=== PATIENT | male | born 1935 | race Caucasian/White ===

== ENCOUNTER → 2016-04-28 | Outpatient (CLI) | payer MEDICARE, BC ==
[~2016-04-28] MED LIST: Albuterol 0.083% 2.5 MG/3 ML Neb Soln NEB ONE
== END | disposition home or self-care (01) ==
LOC: MW.RT 08:59
PROVIDERS: ATTEND Psychiatry & Neurology Neuromuscular Medicine
DX: R13.10 Dysphagia, unspecified (principal)
CPT/HCPCS: 94010

== ENCOUNTER → 2016-07-31 | Outpatient (CLI) | payer MEDICARE, BC ==
[2016-07-31 10:46] LABS: CHLORIDE,CL 103 mmol/L (98-110); SODIUM,NA 136 mmol/L (136-146)
== END ==
LOC: MW.CHNEURO 09:56
PROVIDERS: ATTEND Psychiatry & Neurology Neuromuscular Medicine
DX: G12.21 Amyotrophic lateral sclerosis (principal)
CPT/HCPCS: 36415; 80053; 85025; 95885; 95910; 99214

== ENCOUNTER 2016-10-23 11:59 | Emergency (ER) | payer MEDICARE, BC ==
--- NOTE | 2016-10-23 12:44 | EDM.PDOC ---
ED HPI GENERAL MEDICAL PROBLEM - General Chief Complaint: Respiratory Problem Stated Complaint: TROUBLE BREATHING Time Seen by Provider: 10/23/16 12:30 Source of Information: Reports: Patient History Limitations: Reports: No Limitations - History of Present Illness INITIAL COMMENTS - FREE TEXT/NARRATIVE: HISTORY AND PHYSICAL: History of present illness: [Patient comes to the emergency room complaining of nasal congestion. Has a history of allergic rhinitis and ALS. He has noticed worsening congestion and difficulty breathing through his nose for the past couple of weeks. He is use some Afrin type nasal spray for 6 days without significant improvement in his symptoms. He's been using an [place] pot which provided short-term relief. He continues to use Flonase nasal spray twice daily. Takes Zyrtec from time to time. He denies any chest pain shortness of breath and difficulty breathing. He' s had no cough or chest congestion. No sputum production. He denies sinus pain. Is not blowing purulent drainage from his nostrils. No headaches, earaches, sore throat. Denies fever or chills and states that he has recently been well.] Review of systems: As per history of present illness and below otherwise all systems reviewed and negative. Past medical history: As per history of present illness and as reviewed below otherwise noncontributory. Surgical history: As per history of present illness and as reviewed below otherwise noncontributory. Social history: No reported history of drug or alcohol abuse. Family history: As per history of present illness and as reviewed below otherwise noncontributory. Physical exam: HEENT: Atraumatic, normocephalic. TMs are pearly aragon and equal bilaterally. Nares are significantly boggy and erythematous. No discharge noted. Nontender with palpation over sinuses. mucous membranes moist, throat clear. neck supple , nontender. Lungs: Clear to auscultation, breath sounds equal bilaterally. Heart: S1S2, regular rate and rhythm. Abdomen: Soft, nondistended, nontender. Pelvis: Stable nontender. Genitourinary: Deferred. Rectal: Deferred. Extremities: Atraumatic. Neurovascular unremarkable. Neuro: Awake, alert, oriented. Exam nonfocal. Impression: [Nasal congestion] Plan: [Recommend Sudafed, continue Flonase and Zyrtec daily. Follow-up with ENT. Referrals given for patient to set up appointment. Patient is in agreement with this plan.] Definitive disposition and diagnosis as appropriate pending reevaluation and review of above. - Related Data Allergies Allergy/AdvReac Type Severity Reaction Status Date / Time No Known Allergies Allergy Verified 10/23/16 12:17 Home Meds: Home Meds Tamsulosin HCl [Tamsulosin HCl] 1 tab PO DAILY 03/07/14 [History] Cetirizine [ZyrTEC] 10 mg PO DAILY 10/23/16 [History] ClonazePAM [KlonoPIN] 0.5 mg PO DAILY PRN 10/23/16 [History] Fluticasone Propionate [Flonase] 2 sprays NASBOTH BID 10/23/16 [History] Lisinopril 5 mg PO DAILY 10/23/16 [History] Past Medical History - Past Health History Medical/Surgical History: Denies Medical/Surgical History Neurological History: Reports: Other (See Below) Other Neuro History: ALS - Infectious Disease History Infectious Disease History: Reports: Chicken Pox, Measles, Mumps Social & Family History - Family History Family Medical History: Noncontributory - Tobacco Use Smoking Status *Q: Never Smoker Second Hand Smoke Exposure: No - Caffeine Use Caffeine Use: Reports: None - Alcohol Use Days Per Week of Alcohol Use: 0 Number of Drinks Per Day: 1 Total Drinks Per Week: 0 - Recreational Drug Use Recreational Drug Use: No ED ROS GENERAL - Review of Systems Review Of Systems: ROS reveals no pertinent complaints other than HPI. ED EXAM, GENERAL - Physical Exam Exam: See Below Course - Vital Signs Last Recorded V/S: Last Vital Signs Temp 98.6 F 10/23/16 13:09 Pulse 77 10/23/16 13:09 Resp 18 10/23/16 13:09 BP 130/69 10/23/16 13:09 Pulse Ox 96 10/23/16 13:09 Departure - Departure Time of Disposition: 12:50 Disposition: Home, Self-Care 01 Condition: Good Clinical Impression: Nasal sinus congestion - Discharge Information Instructions: Sinus Rinse, Debr-na-Dxot Referrals: Tristian Guzman MD [Primary Care Provider] - Forms: ED Department Discharge Additional Instructions: The following information is given to patients seen in the emergency department who are being discharged to home. This information is to outline your options for follow-up care. We provide all patients seen in our emergency department with a follow-up referral. The need for follow-up, as well as the timing and circumstances, are variable depending upon the specifics of your emergency department visit. If you don't have a primary care physician on staff, we will provide you with a referral. We always advise you to contact your personal physician following an emergency department visit to inform them of the circumstance of the visit and for follow-up with them and/or the need for any referrals to a consulting specialist. The emergency department will also refer you to a specialist when appropriate. This referral assures that you have the opportunity for follow-up care with a specialist. All of these measure are taken in an effort to provide you with optimal care, which includes your follow-up. Under all circumstances we always encourage you to contact your private physician who remains a resource for coordinating your care. When calling for follow-up care, please make the office aware that this follow-up is from your recent emergency room visit. If for any reason you are refused follow-up, please contact the [facility] emergency department at and asked to speak to the emergency department charge nurse. [facility] Specialty care- ENT [address] [place] [address] Follow-up with your primary care provider or with another provider at the clinic. Recommend follow-up with an research professor at the clinic listed above. Contact the phone number listed above to schedule an appointment. Continue Flonase nasal spray in each nostril. Recommend Zyrtec 10 mg daily. Recommend Sudafed. This medication is available [id number] but you have to ask the pharmacist for it. Follow the instructions on the packaging for dosing instructions. Return to ER as needed as discussed.
[2016-10-23 13:10] VITALS: BP 130/69
== END 2016-10-23 13:09 | disposition home or self-care (01) ==
LOC: MW.ED 11:59
DX: R09.81 Nasal congestion (principal); Z79.899 Other long term (current) drug therapy
CPT/HCPCS: 99282

== ENCOUNTER 2017-03-05 06:36 | Day surgery (SDC) | payer MEDICARE, BC ==
[~2017-03-05 06:36] MED LIST changes: -Albuterol 0.083% 2.5 MG/3 ML Neb Soln NEB ONE; +cefOXitin 1 GM in Premix Bag 1 BAG IV SCH
[2017-03-05] MEDS: Lactated Ringers 1,000 ML IV SCH ×5 (07:04→22:49)
[2017-03-05] MEDS ORDERED: Lidocaine 4% Top Soln 50 ML Bottle ONE (07:24)
[2017-03-05] MEDS ORDERED: Lidocaine 2% 5 ML SDV ONE (07:27)
[2017-03-05] MEDS ORDERED: Propofol 200 MG/20 ML SDV ONE (07:27)
[2017-03-05] MEDS ORDERED: Bupivacaine 0.5% 10 ML SDV ONE (07:27)
[2017-03-05] MEDS ORDERED: Midazolam 1 MG/ML 2 ML SDV ONE (07:27)
[2017-03-05] MEDS ORDERED: Ondansetron 4 MG/2 ML SDV ONE (07:34)
--- NOTE | 2017-03-05 07:42 | PCM.PREANE ---
Preanesthetic Assessment - Anesthesia/Transfusion/Family Hx Anesthesia History: Prior Anesthesia Without Reaction Type of Anesthesia Reaction: Other (see below) (slow to wake up) Family History of Anesthesia Reaction: No Transfusion History: No Prior Transfusion(s) Intubation History: Unknown - Review of Systems General: No Symptoms Pulmonary: No Symptoms Cardiovascular: No Symptoms Gastrointestinal: Nausea Neurological: Weakness (particularly arms) Other: Reports: None - Physical Assessment O2 Sat by Pulse Oximetry: 98 Respiratory Rate: 16 Vital Signs: Last Vital Signs Temp Pulse 91 03/05/17 07:02 Resp 16 03/05/17 07:02 BP 156/90 H 03/05/17 07:02 Pulse Ox 98 03/05/17 07:02 Height: 1.63 m Weight: 60.328 kg ASA Class: 3 Mental Status: Alert & Oriented x3 Airway Class: Mallampati = 2 Thyro-Mental Finger Breadths: 3 Mouth Opening Finger Breadths: 2 (very small mouth) ROM/Head Extension: Limited/Partial Lungs: Clear to Auscultation, Normal Respiratory Effort, Decreased Breath Sounds Cardiovascular: Regular Rate, Regular Rhythm - Allergies Allergies/Adverse Reactions: Allergies Allergy/AdvReac Type Severity Reaction Status Date / Time No Known Allergies Allergy Verified 03/02/17 15:39 - Blood Blood Available: No - Anesthesia Plan Pre-Op Medication Ordered: None - Acknowledgements Anesthesia Type Planned: General Anesthesia Pt an Appropriate Candidate for the Planned Anesthesia: Yes Alternatives and Risks of Anesthesia Discussed w Pt/Guardian: Yes Pt/Guardian Understands and Agrees with Anesthesia Plan: Yes PreAnesthesia Questionnaire - Past Health History Medical/Surgical History: Denies Medical/Surgical History HEENT History: Reports: Allergic Rhinitis, Hard of Hearing Other HEENT History: wears glasses, nasal obstruction- uses flonase twice a day Cardiovascular History: Reports: Hypertension Respiratory History: Reports: COPD, Other (See Below) Other Respiratory History: recurrent aspiration pneumonia, neuromascular respiratory weakness Gastrointestinal History: Reports: GERD, Other (See Below) (dysphagia) Genitourinary History: Reports: BPH Musculoskeletal History: Reports: Fracture, Other (See Below) Other Musculoskeletal History: has ALS, hx of fx arm Neurological History: Reports: Other (See Below) Other Neuro History: ALS diagnosed 01/28, polyradiculoneuropathy Psychiatric History: Reports: Anxiety - Infectious Disease History Infectious Disease History: Reports: Chicken Pox, Measles, Mumps - Past Surgical History Head Surgeries/Procedures: Reports: None HEENT Surgical History: Reports: Tonsillectomy GI Surgical History: Reports: Appendectomy Male Surgical History: Reports: Vasectomy Musculoskeletal Surgical History: Reports: ORIF Other Musculoskeletal Surgeries/Procedures:: hx of ORIF left hip - SUBSTANCE USE Smoking Status *Q: Never Smoker Second Hand Smoke Exposure: No Days Per Week of Alcohol Use: 0 Number of Drinks Per Day: 1 Total Drinks Per Week: 0 Recreational Drug Use History: No - HOME MEDS Home Medications: Home Meds Tamsulosin HCl [Tamsulosin HCl] 0.4 mg PO DAILY 03/07/14 [History] Cetirizine [ZyrTEC] 10 mg PO DAILY 10/23/16 [History] ClonazePAM [KlonoPIN] 0.5 mg PO ASDIRECTED PRN 10/23/16 [History] Fluticasone Propionate [Flonase] 2 sprays NASBOTH BID 10/23/16 [History] Lisinopril 5 mg PO DAILY 10/23/16 [History] - CURRENT (IN HOUSE) MEDS Current Meds: Current Medications Cefoxitin Sodium 1 gm/ Premix 50 mls @ 100 mls/hr IV ONETIME LESA Lactated Ringer's (Ringers, Lactated) 1,000 mls @ 125 mls/hr IV ASDIRECTED LESA Last Admin: 03/05/17 07:04 Dose: 125 mls/hr Discontinued Medications Bupivacaine HCl (Sensorcaine-Mpf 0.5%) Confirm Administered Dose 10 ml .ROUTE .STK-MED ONE Stop: 03/05/17 07:28 Cefoxitin Sodium (Mefoxin In Dextrose,Iso-Osm 1 Gm/50 Ml) Confirm Administered Dose 50 mls @ as directed .ROUTE .STK-MED ONE Stop: 03/05/17 07:35 Lidocaine (Xylocaine-Mpf 2%) Confirm Administered Dose 10 ml .ROUTE .STK-MED ONE Stop: 03/05/17 07:28 Lidocaine HCl (Xylocaine 4% Top Soln) Confirm Administered Dose 50 ml .ROUTE .STK-MED ONE Stop: 03/05/17 07:25 Midazolam HCl (Versed 1 Mg/Ml) Confirm Administered Dose 2 mg .ROUTE .STK-MED ONE Stop: 03/05/17 07:28 Ondansetron HCl (Zofran) Confirm Administered Dose 8 mg .ROUTE .STK-MED ONE Stop: 03/05/17 07:35 Propofol (Diprivan 20 Ml) Confirm Administered Dose 400 mg .ROUTE .STK-MED ONE Stop: 03/05/17 07:28
[2017-03-05] MEDS ORDERED: ePHEDrine 50 MG/ML SDV ONE (08:17)
[2017-03-05] MEDS ORDERED: fentaNYL 100 MCG/2 ML SDV ONE (08:43)
[2017-03-05] MEDS ORDERED: Ondansetron 4 MG/2 ML SDV IVPUSH PRN (09:39)
[2017-03-05] MEDS ORDERED: Acetaminophen/Codeine 120-12 MG/5 ML Soln 5 ML UD Cup PO PRN (09:40)
--- NOTE | 2017-03-05 09:49 | PCM.OPNOTE ---
- General Post-Op/Procedure Note Date of Surgery/Procedure: 03/05/17 Operative Procedure(s): Attempted percutaneous endoscopic gastrostomy. Conversion to open surgical gastrostomy with 22 [place] feeding tube. Pre Op Diagnosis: Amyotrophic lateral sclerosis. COPD. Inability to eat. Post-Op Diagnosis: Same Anesthesia Technique: General ET Tube (ASA IV) Primary Surgeon: Jay Pineda Assistant Statistician: Deisy Bose Reason Assistant Statistician Was Necessary: Surgical exposure Fluid Replacement, Intraop: 1,500 EBL in mLs: 10 Drain/Tube Comments:: 22 [place] feeding tube with 15 mL balloon Condition: Poor Free Text/Narrative:: Dictation [id number] CPT CODE 85897
[2017-03-05] MEDS: Morphine 10 MG/ML Syringe IVPUSH PRN ×3 (10:00→22:45)
--- NOTE | 2017-03-05 11:49 | OR ---
SURGEON: Jay Pineda M.D. DATE OF PROCEDURE: 03/05/2017 OPERATION PERFORMED: Attempted percutaneous endoscopic gastrostomy with conversion to open gastrostomy. CREDIT CARD SPECIALIST: Dr. Bose. ANESTHESIA: General endotracheal. ASA CLASSIFICATION: IV. 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 ESTIMATED BLOOD LOSS: 10 mL. INTRAOPERATIVE FLUID REPLACEMENT: 1500 mL of crystalloid. DESCRIPTION OF PROCEDURE: The patient was taken to the operating room and placed on the transfer cart in the supine position. A time-out was called for appropriate identification of the patient and procedure. Following satisfactory attainment of general endotracheal anesthesia, the bite-block was placed between the patient's teeth. The gastroscope was inserted through the bite-block and advanced into the stomach. The stomach was distended and we could see the appropriate pressure point in the left upper quadrant. The skin was then prepped with Betadine solution by Dr. Bose. The skin was infiltrated. A small incision was made and attempt was made to insert the needle into the stomach. Despite multiple attempts, we could never cannulate the stomach and it was felt that this needed to be converted to an open procedure. I did step out of the operating room and explained things to his , who agrees to allow us to proceed with the open gastrostomy. Upon my return, the patient was placed on the operating room cart. The abdomen was then prepped with DuraPrep solution. Sterile drapes were applied. Upper midline incision was made and deepened through the subcutaneous tissue obtaining hemostasis with the use of electrocautery. The fascia was opened in the midline and the peritoneal cavity was entered. There was no evidence of free air. The stomach was then identified and mobilized. We could never see where the stomach had been punctured. Concentric pursestring sutures of 2-0 silk were placed. A small gastrotomy was made entering the stomach confirmed by identification of the mucosa and the lumen. Using the previous skin incision for attempted PEG placement, a 22-[place] balloon catheter was inserted into the peritoneal cavity. This was subsequently inserted between the concentric pursestring sutures of 2-0 silk. Prior to inserting the tube, the balloon was inspected and inflated and there was no leak. Once the tube was inserted into the stomach, the balloon was inflated to 15 cm of water. The pursestring sutures were tied down to secure the catheter and 2 more sutures were placed on the stomach. These sutures were then tacked to the anterior abdominal wall and tied down after the catheter had been pulled up against the anterior wall. The wound was inspected for hemostasis. No bleeding was noted. The feeding tube aspirates and irrigates quite easily. The wound was again inspected for hemostasis. No bleeding was noted. The fascia was then closed with #1 PDS. The subcutaneous tissue was closed with running 3-0 Vicryl and the skin with subcuticular 4-0 Monocryl. The bolster for the feeding tube was secured to the skin with interrupted 2-0 silk sutures. Sterile gauze was placed under the bolster. The midline incision was Steri-Stripped and dressed with a sterile Tegaderm pad. Sponge, needle, and instrument counts were all correct. The patient tolerated the procedure well. Following emergence from anesthesia and extubation, he was taken to recovery room in stable condition. NAVDEEP / JUANA /[id number]
[2017-03-05] MEDS: Benzocaine/Cetylpyridinium/Menthol Lozenge MUCMEM PRN ×2 (15:22→20:42)
[2017-03-05] MEDS ORDERED: Magnesium Hydroxide 400 MG/5 ML Susp 30 ML Cup GTUBE ONE (19:56)
[2017-03-05] MEDS: FLUTICASONE PROPIONATE NASBOTH SCH (20:19)
--- NOTE | 2017-03-06 06:40 | PCM48HPAN ---
Post Anesthesia Note - EVALUATION WITHIN 48HRS OF ANESTHETIC Vital Signs in Normal Range: Yes Patient Participated in Evaluation: Yes Respiratory Function Stable: Yes Airway Patent: Yes Cardiovascular Function Stable: Yes Hydration Status Stable: Yes Pain Control Satisfactory: Yes Nausea and Vomiting Control Satisfactory: Yes Mental Status Recovered: Yes
[2017-03-06] MEDS: Morphine 10 MG/ML Syringe IVPUSH PRN (06:45)
[2017-03-06] MEDS: Lactated Ringers 1,000 ML IV SCH (07:17)
[2017-03-06] MEDS: FLUTICASONE PROPIONATE NASBOTH SCH (08:58)
--- NOTE | 2017-03-06 10:12 | PCM.DCSUM1 ---
Discharge Summary - Hospital Course Free Text/Narrative:: 81 y/o gentleman with progressive ALS. Underwent attempted PEG yesterday with conversion to open surgical gastrostomy. Developed urinary retention last night relieved with Mcmanus catheter. Tolerating tube feedings with recommendations per Dietitian staff. Today his abdomen is soft and nontender. Bowel sounds are present and normally active. Dressing is dry. Catheter is draining clear yellow urine. - Discharge Data Discharge Date: 03/06/17 Discharge Disposition: Home, W Home Health Agency Condition: Fair - Patient Summary/Data Operative Procedure(s) Performed: Attempted percutaneous endoscopic gastrostomy. Conversion to open surgical gastrostomy with 22 Czech feeding tube. Consults: Consultations 03/06/17 10:02 Consult to [facility] [CONS] Routine - Patient Instructions Diet, Other: Diet as able Activity: As Tolerated Showering/Bathing: May Shower Wound/Incision Care: Keep Operative Site/Wound Site Clean and Dry Notify Provider of: Fever, Increased Pain, Drainage, Nausea and/or Vomiting Other/Special Instructions: See Dr. Pineda in 10-14 days. Continue care with Dr. Guzman. - Discharge Plan Home Medications: Home Meds Tamsulosin HCl [Tamsulosin HCl] 0.4 mg PO DAILY 03/07/14 [History] Cetirizine [ZyrTEC] 10 mg PO DAILY 10/23/16 [History] ClonazePAM [KlonoPIN] 0.5 mg PO ASDIRECTED PRN 10/23/16 [History] Fluticasone Propionate [Flonase] 2 sprays NASBOTH BID 10/23/16 [History] Lisinopril 5 mg PO DAILY 10/23/16 [History] Referrals: Jay Pineda MD [Physician] - 03/16/17 3:30 pm - Discharge Summary/Plan Comment DC Time >30 min.: Yes - General Info Date of Service: 03/06/17 Functional Status: Reports: Pain Controlled, Tolerating Diet - Review of Systems General: Reports: Weakness, Fatigue, Appetite. Denies: Fever, Malaise, Chills, Night Sweats HEENT: Reports: No Symptoms Pulmonary: Denies: Shortness of Breath Cardiovascular: Denies: Chest Pain, Palpitations Gastrointestinal: Reports: Abdominal Pain (incisional), Constipation (chronic, requires Metamucil daily), Difficulty Swallowing (secondary to ALS), Flatus. Denies: Hematochezia, Melena, Nausea, Vomiting Genitourinary: Reports: Retention (Mcmanus placed last evening) Musculoskeletal: Reports: No Symptoms Skin: Denies: Cyanosis, Jaundice Neurological: Reports: Weakness (ALS). Denies: Confusion, Dizziness, Headache Psychiatric: Reports: No Symptoms - Patient Data Vitals - Most Recent: Last Vital Signs Temp 98 F 03/06/17 08:00 Pulse 73 03/06/17 08:00 Resp 16 03/06/17 08:00 BP 123/65 03/06/17 08:00 Pulse Ox 94 L 03/06/17 08:00 Weight - Most Recent: 133 lb I&O - Last 24 hours: Intake & Output 03/05/17 03/06/17 03/06/17 19:59 03:59 11:59 Intake Total 1994 Output Total 1250 Balance 25 745 Med Orders - Current: Current Medications Acetaminophen/Codeine Phosphate (Tylenol/Codeine 120-12 Mg/5 Ml) 15 ml PO Q4H PRN PRN Reason: Pain (moderate 4-6) Last Admin: 03/06/17 02:45 Dose: 15 ml Benzocaine/Menthol (Cepacol Sore Throat) 1 lozenge MUCMEM SEECOMMENT PRN PRN Reason: Sore Throat Last Admin: 03/05/17 20:42 Dose: 1 lozenge Fluticasone Propionate (Flonase) 0 gm NASBOTH BID LESA Last Admin: 03/06/17 08:58 Dose: 1 spray Cefoxitin Sodium 1 gm/ Premix 50 mls @ 100 mls/hr IV ONETIME LESA Lactated Ringer's (Ringers, Lactated) 1,000 mls @ 125 mls/hr IV ASDIRECTED LESA Last Admin: 03/06/17 07:17 Dose: 125 mls/hr Morphine Sulfate (Morphine) 0 mg IVPUSH Q1H PRN PRN Reason: Pain (severe 7-10) Last Admin: 03/06/17 06:45 Dose: 3 mg Ondansetron HCl (Zofran) 4 mg IVPUSH Q6H PRN PRN Reason: Nausea/Vomiting Discontinued Medications Bupivacaine HCl (Sensorcaine-Mpf 0.5%) Confirm Administered Dose 10 ml .ROUTE .STK-MED ONE Stop: 03/05/17 07:28 Ephedrine Sulfate (Ephedrine Sulfate) Confirm Administered Dose 50 mg .ROUTE .STK-MED ONE Stop: 03/05/17 08:18 Fentanyl (Sublimaze) Confirm Administered Dose 100 mcg .ROUTE .STK-MED ONE Stop: 03/05/17 08:44 Lactated Ringer's (Ringers, Lactated) 1,000 mls @ 125 mls/hr IV ASDIRECTED LESA Last Infusion: 03/05/17 15:04 Dose: Infused Cefoxitin Sodium (Mefoxin In Dextrose,Iso-Osm 1 Gm/50 Ml) Confirm Administered Dose 50 mls @ as directed .ROUTE .STK-MED ONE Stop: 03/05/17 07:35 Lidocaine (Xylocaine-Mpf 2%) Confirm Administered Dose 10 ml .ROUTE .STK-MED ONE Stop: 03/05/17 07:28 Lidocaine HCl (Xylocaine 4% Top Soln) Confirm Administered Dose 50 ml .ROUTE .STK-MED ONE Stop: 03/05/17 07:25 Magnesium Hydroxide (Milk Of Magnesia) 30 ml GTUBE ONETIME ONE Stop: 03/05/17 19:57 Last Admin: 03/05/17 20:20 Dose: 30 ml Midazolam HCl (Versed 1 Mg/Ml) Confirm Administered Dose 2 mg .ROUTE .STK-MED ONE Stop: 03/05/17 07:28 Ondansetron HCl (Zofran) Confirm Administered Dose 8 mg .ROUTE .STK-MED ONE Stop: 03/05/17 07:35 Propofol (Diprivan 20 Ml) Confirm Administered Dose 400 mg .ROUTE .STK-MED ONE Stop: 03/05/17 07:28 - Exam Quality Assessment: Reports: Urine Catheter. Denies: Supplemental Oxygen, Skin Breakdown General: Reports: Alert, Oriented, Cooperative, No Acute Distress HEENT: Reports: Pupils Equal, Pupils Reactive. Denies: Scleral Icterus Neck: Reports: Supple Lungs: Reports: Clear to Auscultation, Normal Respiratory Effort Cardiovascular: Reports: Regular Rate, Regular Rhythm, No Murmurs GI/Abdominal Exam: Normal Bowel Sounds, Soft, Non-Tender, No Distention. No: Guarding, Rigid, Rebound, Tender (Male) Exam: No Hernia Rectal (Males) Exam: Deferred Extremities: Normal Inspection Skin: Reports: Warm, Dry, Intact Wound/Incisions: Reports: Dressing Dry and Intact Neurological: Reports: No New Focal Deficit, Strength Equal Bilateral Psy/Mental Status: Reports: Alert, Normal Affect, Normal Mood Discharge Operative/Procedures - Procedures Performed Operations/Procedure Comment: Open surgical gastrostomy. 22Fr feeding tube. *Q Meaningful Use (DIS) - VTE *Q VTE Criteria *Q: - Stroke *Q Stroke Criteria *Q: - AMI *Q AMI Criteria *Q:
[2017-03-06 11:58] VITALS: BP 132/68
== END 2017-03-06 12:40 | disposition home health service (06) ==
LOC: MW.SDS 06:36 → MW.MS 11:06 → MW.SDS 03-06 12:40
PROVIDERS: ATTEND Surgery
DX: G12.21 Amyotrophic lateral sclerosis (principal); J44.9 Chronic obstructive pulmonary disease, unspecified; R13.10 Dysphagia, unspecified; K59.09 Other constipation; L57.0 Actinic keratosis; J30.9 Allergic rhinitis, unspecified; F41.9 Anxiety disorder, unspecified; N40.1 Benign prostatic hyperplasia with lower urinary tract symptoms; R33.8 Other retention of urine; K21.9 Gastro-esophageal reflux disease without esophagitis; I10 Essential (primary) hypertension; G61.0 Guillain-Barre syndrome; Z53.31 Laparoscopic surgical procedure converted to open procedure; Z79.51 Long term (current) use of inhaled steroids; Z79.899 Other long term (current) drug therapy; Z90.49 Acquired absence of other specified parts of digestive tract; Z98.52 Vasectomy status; Z90.89 Acquired absence of other organs
CPT/HCPCS: 43830; A9270; J0694; J2250; J2270; J2405; J3010; J7120; 00740; J2704